=== PATIENT | female | born 1955 ===

== ENCOUNTER → 2025-07-28 00:29 | Outpatient (CLI) | payer MEDICARE, SELFPAY ==
--- NOTE | 2025-07-28 14:15 | DI.US_ITS ---
APPROVED REPORT EXAM: Comprehensive 2D, Doppler, and color-flow Echocardiogram Patient Location: Out-Patient Bench Mover: David Garvin RDCS (AE) Indications: Heart murmur Other Information Study Quality: Fair Conclusion Mild concentric left ventricular hypertrophy. Ejection fraction is 60 to 65%. Wall motion is normal Normal right ventricular size and function Both atria are normal in size The aortic valve is trileaflet and mildly sclerotic without stenosis or regurgitation Mildly thickened mitral leaflets, trace mitral regurgitation Wall motion Left Ventricle The left ventricle is normal size. The left ventricular systolic function is normal. The left ventricular ejection fraction is within the normal range. Mild concentric left ventricular hypertrophy. There is normal LV segmental wall motion. There is no ventricular septal defect visualized. LVEF is 60-65%. Right Ventricle The right ventricle is normal size. The right ventricular systolic function is normal. Atria The left atrium size is normal. The right atrium size is normal. The interatrial septum is intact with no evidence for an atrial septal defect. Aortic Valve The aortic valve is mildly sclerotic. Aortic valve is trileaflet. There is no aortic valvular stenosis. No aortic regurgitation is present. Mitral Valve Mitral valve leaflets are mildly thickened. No evidence of mitral valve stenosis. Trace mitral regurgitation. Tricuspid Valve The tricuspid valve is normal in structure. There is no tricuspid valve stenosis. Trace tricuspid regurgitation. Pulmonic Valve The pulmonary valve is normal in structure. There is no pulmonic valvular stenosis. There is no pulmonic valvular regurgitation. Great Vessels The aortic root is normal in size. The ascending aorta is normal in size. Aortic arch is normal in caliber. IVC is normal in size and collapses >50% with inspiration. Pericardium There is no pericardial effusion. 2D Dimensions IVSD d PLAX 1.18 cm F: 0.6-1.0 Ao Root d 2.60 cm F: 2.7 - 3.3 LVPW d PLAX 1.17 cm F: 0.6 - 1.0 Ao Asc Diam d 3.16 cm F: 2.3 - 3.1 LVID d PLAX 4.50 cm F: 3.8 - 5.2 LVDs 3.07 cm F: 2.2 - 3.5 LV EF Teichholz 59.8 % FS 31.65 % LV EDV (Teich) 92.4 mL LV ESV (Teich) 37.2 mL Stroke Vol Index (Teich) 28.45 M-Mode TAPSE 2.65 cm (M/F) >1.7 Auto EF LV EDV A4C 103.6 mL LV EDV A2C 114.7 mL LV EDV BP 109.6 mL LV ESV A4C 40.4 mL LV ESV A2C 41.1 mL LV ESV BP 42.4 mL LVEF(%) A4C 61.0 % LVEF(%) A2C 64.2 % LVEF(%) BP 61.3 % LV SV A4C 63.2 ml LV SV A2C 73.6 ml LV SV BP 67.2 ml LV CO A4C 4.9 L/min LV CO A2C 5.5 L/min LV CO BP 5.2 L/min HR A4C 77.59 BPM HR A2C 74.23 BPM LV EDV Index (BP) LA Volume LA Length A4C 4.3 cm LA Length A2C 4.9 cm LA Area A4C s 9.22 cm2 LA Area A2C s 13.66 cm2 LA Vol A4C A-L 16.62 mL LA Vol A2C A-L 32.20 mL LA Vol Biplane A-L 24.6 mL LA Vol/BSA A4C A-L LA Vol/BSA A2C A-L LA Vol/BSA BP A-L 12.7 mL/m2 LA Vol A4C MOD 15.7 mL LA Vol A2C MOD 31.1 mL LA Vol BP MOD 23.4 mL RA Volume RA Area A4C 8.7 cm2 RA ESV A4C (A-L) 17.8mL RA Vol/BSA A4C A-L RA Length A4C 3.6 cm RA ESV A4C (MOD) 16.8mL LV Diastology MV E' medial 0.077 (>0.07 m/s) MV E Vmax 0.87 (0.4-1.3 m/s) MV E/E' MED 11.33 (<14) MV A Vmax 1.10 (0.4-1.3 m/s) MV E' lateral 0.074 (>0.1 m/s) E/A Ratio 0.8 MV E/E' LAT 11.74 (<14) MV E' Average 0.075 m/s MV E/E'(average) 11.53 Aortic Valve AoV Vmax 1.61 m/s LVOT Diam s 2.00 cm AoV Peak Grad 10.4 mmHg AV Regurg Peak Gr. 10.38 mmHg AoV VTI 0.374 m AoV Mean Cl[place]. 1.11 m/s AoV Mean Grad 5.6 mmHg Pulmonary Valve PV Vmax 1.23 (0.5-1.5 m/s) RVOT Vmax 1.06 m/s PV Peak Grad 6.0 mmHg RVOT Peak Gr. 4.5 mmHg PV Mean [place] 0.93 m/s RVOT VTI 0.229 m PV Mean Grad 3.9 mmHg RVOT Mean Gr. 2.4 mmHg
== END ==
LOC: DI 00:29
PROVIDERS: Visit Provider Nurse Practitioner Family
DX: R01.1 Cardiac murmur, unspecified (principal); I51.7 Cardiomegaly
CPT/HCPCS: 93306